=== PATIENT | female | born 1995 | race African-American/Black ===

== ENCOUNTER 2019-09-23 04:35 | Emergency (ER) | payer MEDICAID ==
[~2019-09-23] VITALS: Ht 170.2 cm; Wt 95.3 kg
[~2019-09-23 04:35] MED LIST: FERR-20 PO; PREN-145 OR
[2019-09-23 07:26] VITALS: BP 106/82
[2019-09-23] MEDS ORDERED: cefTRIAXone SOD 1,000 MG VL IM ONE (08:15)
[2019-09-23] MEDS ORDERED: IBUPROFEN 800 MG TAB PO ONE (08:15)
== END 2019-09-23 08:37 | disposition home or self-care (01) ==
LOC: ER 04:35
DX: J34.0 Abscess, furuncle and carbuncle of nose (principal); J45.909 Unspecified asthma, uncomplicated; R22.0 Localized swelling, mass and lump, head
CPT/HCPCS: 70450; 70486; 96372; 99284; J0696

== ENCOUNTER 2022-05-02 12:14 | Emergency (ER) | payer MEDICAID ==
[~2022-05-02] VITALS: Ht 170.2 cm; Wt 88.6 kg
[2022-05-02] MEDS ORDERED: D5W/SOD CHLO 0.9% 1,000 ML IV ONE (13:30)
[2022-05-02] MEDS ORDERED: ONDANSETRON HCL 4 MG/2 ML VIAL IV ONE (14:00)
[2022-05-02 14:22] LABS: Albumin 3.7 g/dL (3.4-5.0); Calcium 9.1 mg/dL (8.5-10.1); Potassium 3.9 mmol/L (3.5-5.1)
[2022-05-02 14:25] LABS: Bilirubin, Total 0.7 mg/dL (0.2-1.0); Total Protein 8.4 g/dL (6.4-8.2)
[2022-05-02 14:27] LABS: Eosinophils # (auto) 0 10 ^3/uL (0-0.8); Mean Corpuscular Hgb Conc. 31.4 g/dL (32.0-36.0); Monocytes # (auto) 0.4 10 ^3/uL (0-1.3)
[2022-05-02 14:28] LABS: Basophils # (auto) 0.1 10 ^3/uL (0-0.2); Basophils % (auto) 0.7 % (0.0-2.0); Eosinophils % (auto) 0.4 % (0.0-7.0); Lymphocytes # (auto) 2.3 10 ^3/uL (0.4-5.4); Lymphocytes % (auto) 26.3 % (10.0-50.0); Mean Corpuscular Hemoglobin 24.4 pg (28.0-32.0); Mean Corpuscular Volume 77.7 fL (80.0-100.0); Monocytes % (auto) 4.1 % (0.0-12.0); Neutrophils # (auto) 6.1 10 ^3/uL (1.6-8.6); Neutrophils % (auto) 68.5 % (37.0-80.0); Nucleated Red Blood Cells % 0.1 %; Red Blood Cells 4.51 10^6/uL (4.0-5.20); Red Cell Distribution Width 17.9 % (11.8-14.3); White Blood Cell 8.9 10^3/uL (4.4-10.8)
[2022-05-02] MEDS ORDERED: ONDA-144 PO (16:47)
[2022-05-02 18:33] VITALS: BP 115/66
== END 2022-05-02 18:42 | disposition home or self-care (01) ==
LOC: ER 12:14
DX: S00.93XA Contusion of unspecified part of head, initial encounter (principal); O21.8 Other vomiting complicating pregnancy; E86.0 Dehydration; J45.909 Unspecified asthma, uncomplicated; Z79.899 Other long term (current) drug therapy; Z3A.01 Less than 8 weeks gestation of pregnancy; W22.8XXA Striking against or struck by other objects, initial encounter; Y93.89 Activity, other specified; Y92.89 Other specified places as the place of occurrence of the external cause; Y99.8 Other external cause status
CPT/HCPCS: 36415; 36600; 80053; 82805; 82962; 84702; 85025; 86850; 86900; 86901; 93005; 96361; 96374; 99284; J2405; J7042

== ENCOUNTER 2022-05-19 09:18 | Emergency (ER) | payer MEDICAID ==
[~2022-05-19] VITALS: Ht 170.2 cm; Wt 193.6 kg
[~2022-05-19 09:18] MED LIST changes: +ONDA-144 PO
[2022-05-19 10:15] LABS: Eosinophils # (auto) 0 10 ^3/uL (0-0.8); Eosinophils % (auto) 0.3 % (0.0-7.0); Monocytes # (auto) 0.4 10 ^3/uL (0-1.3); White Blood Cell 8.5 10^3/uL (4.4-10.8)
[2022-05-19 10:16] LABS: Basophils # (auto) 0 10 ^3/uL (0-0.2); Basophils % (auto) 0.5 % (0.0-2.0); Hematocrit 38.3 % (36.0-46.0); Hemoglobin 11.9 g/dL (12.2-16.2); Lymphocytes # (auto) 1.6 10 ^3/uL (0.4-5.4); Lymphocytes % (auto) 18.5 % (10.0-50.0); Mean Corpuscular Volume 77.3 fL (80.0-100.0); Monocytes % (auto) 4.7 % (0.0-12.0); Neutrophils # (auto) 6.5 10 ^3/uL (1.6-8.6); Red Blood Cells 4.95 10^6/uL (4.0-5.20); Red Cell Distribution Width 18.4 % (11.8-14.3)
[2022-05-19 10:31] LABS: Albumin 3.3 g/dL (3.4-5.0); Calcium 9.5 mg/dL (8.5-10.1); Potassium 3.4 mmol/L (3.5-5.1)
[2022-05-19 10:35] LABS: BUN/Creatinine Ratio 15.4; Bilirubin, Total 1.5 mg/dL (0.2-1.0); Total Protein 7.6 g/dL (6.4-8.2)
[2022-05-19] MEDS: FAMOTIDINE (10MG/ML) 2ML VL IV ONE (12:44)
[2022-05-19] MEDS: ALUM & MAG HYDROX-SIMETH LIQ(MAALOX) 30 ML PO ONE (12:45)
[2022-05-19] MEDS: LIDOCAINE VISCOUS 2% 15ML UD PO ONE (12:45)
[2022-05-19] MEDS: METOCLOPRAMIDE HCL 5MG/ml INJ 2ml VIAL IV ONE (12:45)
[2022-05-19] MEDS: D5W/SOD CHLO 0.9% 1,000 ML IV ONE (12:45)
[2022-05-19] MEDS: PYRIDOXINE HCL 50 MG TAB PO ONE (12:50)
[2022-05-19] MEDS: diphenhdrAMINE HCL 50 MG/1 ML VL IV ONE (13:02)
[2022-05-19 14:16] LABS: Urine Bacteria NONE SEEN /hpf (None Seen); Urine Blood Negative /uL (Negative); Urine Mucus FEW (None Seen); Urine Specific Gravity 1.033 (1.001-1.035); Urine WBC 42 /hpf (0 - 5)
[2022-05-19] MEDS: ONDANSETRON HCL 4 MG/2 ML VIAL IV ONE (16:10)
[2022-05-19 16:40] VITALS: BP 109/66
[2022-05-19] MEDS ORDERED: CEFP200T15 PO (17:13)
== END 2022-05-19 17:42 | disposition home or self-care (01) ==
LOC: ER 09:18
DX: O21.8 Other vomiting complicating pregnancy (principal); Z3A.08 8 weeks gestation of pregnancy
CPT/HCPCS: 36415; 76801; 80053; 81001; 82010; 83605; 83690; 84702; 85025; 87040; 96365; 96375; 99284; J1200; J2765; J3490

== ENCOUNTER 2025-02-15 10:10 | Inpatient (IN) | payer MEDICAID ==
[~2025-02-15] VITALS: Ht 170.2 cm; Wt 103.2 kg
[~2025-02-15 10:10] MED LIST changes: +CEFP200T15 PO; -FERR-20 PO; +FERR325T24 PO
--- NOTE | 2025-02-15 10:26 | ED.PDOC ---
GI ASSESSMENT HPI Comments 29-year-old female with no reported PMHx or PSHx presents with a chief complaint of abdominal pain x 3 weeks with associated nausea, vomiting, and diarrhea. Patient states that her pain is localized to her periumbilical region, radiates to her RUQ, and describes it as cramping 7/10 pain. Patient mentions that the position is the position that alleviates the pain. Patient reports that she smokes marijuana daily. Chief Complaint: Abdominal Pain Time Seen by MD: 10:19 Primary Care Provider: LOREN Reviewed Notes: Nurses Notes, Medications, Allergies Allergies: Coded Allergies: NO KNOWN ALLERGIES (Unverified , 01/09/13) Home Meds Active Scripts Cefpodoxime Proxetil (Cefpodoxime Proxetil) 200 Mg Tab, 200 MG PO BID for 10 Days, #20 TAB Prov:ASTRID FONSECA MD 05/19/22 Ondansetron (Zofran) 4 Mg Tab, 1 TAB PO Q6HR, #20 TAB Prov:EVONNE SAUNDERS MD 05/02/22 Reported Medications Ferrous Sulfate (Ferrous Sulfate) 325 Mg Tab, 325 MG PO TIDWM for 30 Days 11/25/15 Vit W/ Ferrous Fumara (PNV FOLIC ACID + IRON MUL) + Iron Tab, 1 IRON OR DAILY, TAB 11/23/13 Information Source: Patient Mode of Arrival: Ambulatory Timing: Weeks Duration: Since onset Prehospital treatment: None Quality: Cramping Vomitus: Food Particles Stool: Watery, Brown Severity: Moderate Recent: None Recent Hx of: None Pain Location: RUQ, Periumbilical Associated sign and symptoms: Nausea, Vomiting, Diarrhea, Abdominal Pain Past Medical History PAST MEDICAL HISTORY: Asthma Surgical History: Denies all surgeries PHYSICIAN IN PRIVATE PRACTICE History: No Pertinent PHYSICIAN IN PRIVATE PRACTICE History Family History Family History: No family hx of HTN Social History Smoker: Non-Smoker Alcohol: Denies ETOH Use Drugs: Marijuana Lives In: Home Constitutional: denies: chills, diaphoresis, fatigue, fever, malaise, sweats, weakness, others EENTM: denies: blurred vision, double vision, ear bleeding, ear discharge, ear drainage, ear pain, ear ringing, eye pain, eye redness, hearing loss, mouth pain, mouth swelling, nasal discharge, nose bleeding, nose congestion, nose pain, photophobia, tearing, throat pain, throat swelling, voice changes, others Respiratory: denies: cough, hemoptysis, orthopnea, SOB at rest, shortness of breath, SOB with excertion, stridor, wheezing, others Cardiovascular: denies: chest pain, dizzy spells, diaphoresis, Dyspnea on exertion, edema, irregular heart beat, left arm pain, lightheadedness, palpitations, PND, syncope, others Gastrointestinal: reports: abdominal pain, diarrhea, nausea, vomiting; denies: abdomen distended, blood streaked bowels, constipated, dysphagia, difficulty swallowing, hematemesis, melena, poor appetite, poor fluid intake, rectal bleeding, rectal pain, others Genitourinary: denies: abnormal vagina bleeding, burning, dyspareunia, dysuria, flank pain, frequency, hematuria, incontinence, pain, , vagina discharge, urgency, others Neurological: denies: dizziness, fainting, headache, left sided numbness, left sided weakness, numbness, paresthesia, pre-existing deficit, right sided numbness, right sided weakness, seizure, speech problems, tingling, tremors, weakness, others Musculoskeletal: denies: back pain, gout, joint pain, joint swelling, muscle pain, muscle stiffness, neck pain, others Integumetry: denies: bruises, change in color, change in hair/nails, dryness, laceration, lesions, lumps, rash, wounds, others Allergic/Immunocompromised: denies: Difficulty Healing, Frequent Infections, Hives, Itching, others Hematologic/Lymphatic: denies: anemia, blood clots, easy bleeding, easy bruising, swollen glands, others Endocrine: denies: excessive hunger, excessive sweating, excessive thirst, excessive urination, flushing, intolerance to cold, intolerance to heat, unexplained weight gain, unexplained weight loss, others Psychiatric: denies: anxiety, bipolar disorder, depression, hopeless, panic disorder, schizophrenia, sleepless, suicidal, others All Other Systems: Reviewed and Negative Physical Exam General Appearance: Moderate Distress HEENT: Normal ENT Inspection, Pharynx Normal, TMs Normal Neck: Full Range of Motion, Non-Tender, Normal, Normal Inspection Respiratory: Chest Non-Tender, Lungs Clear, No Accessory Muscle Use, No Respiratory Distress, Normal Breath Sounds Cardiovascular: No Edema, No JVD, No Murmur, No Gallop, Normal Peripheral Pulses, Regular Rate/Rhythm Breast Exam: Deferred Gastrointestinal: Epigastric, No Organomegaly, No Pulsatile Mass, Normal Bowel Sounds, Soft, Tenderness Genitalia: Deferred Pelvic: Deferred Rectal: Deferred Extremities: No calf tenderness, Normal capillary refill, Normal inspection, Normal range of motion, Non-tender, No pedal edema Musculoskeletal : Apperance: Normal Neurologic: Alert, seasoning sprayer II-XII nml as Tested, No Motor Deficits, Normal Affect, Normal Mood, No Sensory Deficits Cerebellar Function: Normal Reflexes: Normal Skin: Dry, Normal Color, Warm Lymphatic: No Adenopathy Was a procedure done? Was a procedure done?: No GI differential Dx Differential Diagnosis: Cholangitis, Cholecystitis, Gastritis/PUD, Gastroenteritis, Inflammatory BD, Ischemic Bowel, UTI, Electrolyte Imbalance, Food Poisoning X-Ray, Labs, Meds, VS Vital Signs Date Time Temp Pulse Resp B/P (MAP) Pulse Ox O2 Delivery O2 Flow Rate FiO2 02/15/25 10:19 99.1 79 17 133/82 (99) 99 99.1 Lab Test 02/15/25 10:33 02/15/25 10:30 Range/Units White Blood Count 7.0 4.4-10.8 10^3/uL Red Blood Count 4.82 4.0-5.20 10^6/uL Hemoglobin 11.2 L 12.2-16.2 g/dL Hematocrit 35.4 L 36.0-46.0 % Mean Corpuscular Volume 73.5 L 80.0-100.0 fL Mean Corpuscular Hemoglobin 23.1 L 28.0-32.0 pg Mean Corpuscular Hemoglobin Concent 31.5 L 32.0-36.0 g/dL Red Cell Distribution Width 18.4 H 11.8-14.3 % Platelet Count 384 140-450 10^3/uL Mean Platelet Volume 8.0 6.9-10.8 fL Neutrophils (%) (Auto) 56.1 37.0-80.0 % Lymphocytes (%) (Auto) 36.8 10.0-50.0 % Monocytes (%) (Auto) 5.1 0.0-12.0 % Eosinophils (%) (Auto) 1.4 0.0-7.0 % Basophils (%) (Auto) 0.6 0.0-2.0 % Neutrophils # (Auto) 3.9 1.6-8.6 10 ^3/uL Lymphocytes # (Auto) 2.6 0.4-5.4 10 ^3/uL Monocytes # (Auto) 0.4 0-1.3 10 ^3/uL Eosinophils # (Auto) 0.1 0-0.8 10 ^3/uL Basophils # (Auto) 0 0-0.2 10 ^3/uL Nucleated Red Blood Cells 0.0 % Sodium Level 137 136-145 mmol/L Potassium Level 3.5 3.5-5.1 mmol/L Chloride Level 105 98-107 mmol/L Carbon Dioxide Level 26 20-31 mmol/L Anion Gap 6 5-15 Blood Urea Nitrogen 10 9-23 mg/dL Creatinine 0.90 0.550-1.02 mg/dL Glomerular Filtration Rate Calc 88 >90 mL/min BUN/Creatinine Ratio 11.1 10.0-20.0 Serum Glucose 82 74-106 mg/dL Calcium Level 9.5 8.7-10.4 mg/dL Total Bilirubin 0.7 0.2-1.0 mg/dL Aspartate Amino Transferase (AST) 12 L 13-40 U/L Alanine Aminotransferase (ALT) 14 7-40 U/L Alkaline Phosphatase 93 46-116 U/L Total Protein 8.1 5.7-8.2 g/dL Albumin 4.8 3.2-4.8 g/dL Lipase 32 12-53 U/L Urine Color Light-yellow Yellow Urine Clarity Turbid H Clear Urine pH 6.5 5.0-9.0 Urine Specific [place] 1.021 1.001-1.035 Urine Protein Negative Negative Urine Ketones Negative Negative Urine Blood Negative Negative /uL Urine Nitrite Negative Negative Urine Bilirubin Negative Negative Urine Urobilinogen Normal Negative mg/dL Urine Leukocyte Esterase 3+ Negative /uL Urine RBC 5 0 - 4 /hpf Urine Microscopic WBC 4 0-5 /HPF Urine Squamous Epithelial Cells Few <5 /hpf Urine Bacteria None seen None Seen /hpf Urine Mucus Few None Seen Urine Glucose Normal Normal mg/dL Urine Test Negative Negative IV Hep-Lock was established The patient is being given Protonix 40 mg IV push The patient was given Zofran 4 mg IV push The gallbladder ultrasound shows cholelithiasis but no sign of any dilated ducts. The patient's CBC is within normal limits. The chemistry panel is within normal limits. The lipase is within normal limits The urine test is positive for UTI The patient is being given Rocephin 1 g IV piggyback Images Reviewed?: Images reviewed and evaluated by me Time of 1ST Reevaluation: 10:49 Reevaluation 1ST: Unchanged Patient Education/Counseling: Diagnosis, Treatment, Prognosis Family Education/Counseling: No Family Present Departure 1 Departure Time of Disposition: 11:36 Impression: Primary Impression: Intractable abdominal pain Additional Impression: Cholelithiasis Qualified Codes: K80.20 - Calculus of gallbladder without cholecystitis without obstruction Disposition: ADMITTED INPATIENT Admit to: Med Surg Condition: Fair Critical Care Note Critical Care Time?: No Stability Stability form required: Yes Unstable for transfer: ED Physician Assesment (Clinical assesment) Heart Score Heart Score: Heart Score Response (Comments) Value History N/A 0 EKG N/A 0 Age N/A 0 Risk Factors N/A 0 Troponin N/A 0 Total 0 I personally scribed for OLIVER VASQUEZ MD ([email or web address]) on 02/15/25 at 10:26. Electronically submitted by Dennis Seymour ([email or web address]). OLIVER VASQUEZ MD February 15, 2025 10:26
[2025-02-15 10:41] LABS: Urine Bacteria None Seen /hpf (None Seen)
[2025-02-15 10:47] LABS: Eosinophils # (auto) 0.1 10 ^3/uL (0-0.8); Mean Corpuscular Hemoglobin 23.1 pg (28.0-32.0); Neutrophils # (auto) 3.9 10 ^3/uL (1.6-8.6)
[2025-02-15 10:50] LABS: Basophils # (auto) 0 10 ^3/uL (0-0.2); Basophils % (auto) 0.6 % (0.0-2.0); Eosinophils % (auto) 1.4 % (0.0-7.0); Hematocrit 35.4 % (36.0-46.0); Hemoglobin 11.2 g/dL (12.2-16.2); Lymphocytes # (auto) 2.6 10 ^3/uL (0.4-5.4); Lymphocytes % (auto) 36.8 % (10.0-50.0); Mean Corpuscular Hgb Conc. 31.5 g/dL (32.0-36.0); Mean Corpuscular Volume 73.5 fL (80.0-100.0); Monocytes # (auto) 0.4 10 ^3/uL (0-1.3); Monocytes % (auto) 5.1 % (0.0-12.0); Neutrophils % (auto) 56.1 % (37.0-80.0); Platelet Count (auto) 384 10^3/uL (140-450); Red Blood Cells 4.82 10^6/uL (4.0-5.20); Red Cell Distribution Width 18.4 % (11.8-14.3)
[2025-02-15 10:57] LABS: Urine Blood Negative /uL (Negative); Urine Clarity Turbid (Clear); Urine Color Light-Yellow (Yellow); Urine Mucus FEW (None Seen); Urine Protein, UAD Negative (Negative); Urine Specific Gravity 1.021 (1.001-1.035); Urine Squamous Epithelial Cell FEW /hpf (<5); Urine Urobilinogen Normal (Negative); Urine WBC 4 /HPF (0-5); Urine pH 6.5 (5.0-9.0)
[2025-02-15 11:06] LABS: Alanine Aminotransferase 14 U/L (7-40); Alkaline Phosphatase 93 U/L (46-116); Anion Gap 6 (5-15); BUN/Creatinine Ratio 11.1 (10.0-20.0); Bilirubin, Total 0.7 mg/dL (0.2-1.0); Blood Urea Nitrogen 10 mg/dL (9-23); Calcium 9.5 mg/dL (8.7-10.4); Carbon Dioxide 26 mmol/L (20-31); Chloride 105 mmol/L (98-107); Glucose 82 mg/dL (74-106); Lipase 32 U/L (12-53); Potassium 3.5 mmol/L (3.5-5.1); Sodium 137 mmol/L (136-145); Total Protein 8.1 g/dL (5.7-8.2)
[2025-02-15 11:07] LABS: Albumin 4.8 g/dL (3.2-4.8); Aspartate Aminotransferase 12 U/L (13-40)
--- NOTE | 2025-02-15 11:30 | DVH ---
INDICATION: pain TECHNIQUE: Multiple real-time sonographic images were obtained of the right upper quadrant. COMPARISON: None FINDINGS: The liver demonstrates homogenous echotexture without focal mass lesions. The liver measure s 16 cm. There is no intrahepatic or extrahepatic ductal dilatation. The common duct measures 5 mm. Gallstones. The gallbladder wall measures 2 mm and is within normal limits. The right kidney measures 10.0 cm. The right kidney is normal in contour, size, and shape. The echog enicity is normal. There is no hydronephrosis. The pancreas is not well visualized due to overlying bowel gas. IMPRESSION: Cholelithiasis without sonographic evidence of acute cholecystitis.
[2025-02-15] MEDS: ONDANSETRON HCL 4 MG/2 ML VIAL IV ONE (13:11)
[2025-02-15] MEDS: PANTOPRAZOLE 40 MG/10 ML VIAL INJ IV ONE (13:11)
--- NOTE | 2025-02-15 13:19 | DVHHP2 ---
History of Present Illness Reason for Visit: Abdominal pain History of Present Illness 29-year-old female past medical history asthma no surgical history chief complaint patient complains of right upper quadrant pain she has been dealing with it for two months last week the symptoms got worse with the pain was more intense full especially when she ate so she has been having decreased appetite due to the pain she denies any chest pain no shortness with the breath patient does have subjective fevers patient denies any vomiting or diarrhea not eating makes the pain better along with lying in the position. When evaluating patient's labs and imaging CBC was unremarkable CMP unremarkable UA shows few leuks but no urinary symptoms ultrasound of the abdomen shows gallstones with no infection with these findings we will admit patient ask for General surgery evaluation IV fluid hydration since no white count no fever we will hold off on antibiotics for now Past Medical History See HPI above Past Surgical History See HPI above Family History Reviewed, non-contributory to the management of this case. Past Social History The patient lives at home, denies smoking, alcohol or illicit drugs abuse. Review of Systems Constitutional: No: Fever, Chills, Sweats, Weakness, Malaise, Other Eyes: No: Pain, Vision change, Conjunctivae inflammation, Eyelid inflammation, Other, Redness ENT: No: Ear pain, Ear discharge, Nose pain, Nose discharge, Nose congestion, Mouth pain, Mouth swelling, Throat pain, Throat swelling, Other Respiratory: No: Cough, Dry, Shortness of breath, SOB with excertion, Wheezing, Hemoptysis, Pleuritic Pain, Sputum, Wheezing, Other Cardiovascular: No: Chest Pain, Palpitations, Orthopnea, Paroxysmal Noc. Dyspnea, Edema, Lt Headedness, Other Gastrointestinal: Nausea, Vomiting, Abdominal Pain; No: Diarrhea, Constipation, Melena, Hematochezia, Other Genitourinary: No Dysuria, No Frequency, No Incontinence, No Hematuria, No Retention, No Other Musculoskeletal: No: other, neck pain, shoulder pain, arm pain, back pain, hand pain, leg pain, foot pain Skin: No: Rash, Lesions, Jaundice, Bruising, Other Neurological: No: Weakness, Numbness, Incoordination, Change in speech, Confusion, Seizures, Other Allergies: Coded Allergies: NO KNOWN ALLERGIES (Unverified , 01/09/13) Exam Vital Signs Vital Signs Date Time Temp Pulse Resp B/P (MAP) Pulse Ox O2 Delivery O2 Flow Rate FiO2 02/15/25 11:48 98.7 94 18 132/81 (98) 99 98.7 02/15/25 11:48 Room Air General Appearance: Alert, Oriented X3, Cooperative, No acute distress HEENT: Atraumatic, PERRLA, EOMI, Mucous membr. moist/pink Respiratory: Clear to auscultation, Normal air movement Cardiovascular: Regular rate, Normal S1, Normal S2, No murmurs Abdominal: Normal bowel sounds, Soft, No hepatospenomegaly, No masses, Other (Guarding and rebound tenderness to right upper quadrant of the abdomen) Extremities: No clubbing, No cyanosis, No edema, Normal pulses, No tenderness/swelling Skin: No rashes, No breakdown, No significant lesion Neuro: Normal gait, Normal speech, Strength at 5/5 X4 ext, Normal tone, Sensation intact, Cranial nerves 3-12 NL Psych/Mental Status: Mental status NL, Mood NL Labs/Xrays Ultrasound of the abdomen shows gallstones but no infection I reviewed labs, imaging CT scan abdomen pelvis, EKG and all diagnostic studies on this patient from ED records and the medical chart Labs Test 02/15/25 10:33 02/15/25 10:30 Range/Units White Blood Count 7.0 4.4-10.8 10^3/uL Red Blood Count 4.82 4.0-5.20 10^6/uL Hemoglobin 11.2 L 12.2-16.2 g/dL Hematocrit 35.4 L 36.0-46.0 % Mean Corpuscular Volume 73.5 L 80.0-100.0 fL Mean Corpuscular Hemoglobin 23.1 L 28.0-32.0 pg Mean Corpuscular Hemoglobin Concent 31.5 L 32.0-36.0 g/dL Red Cell Distribution Width 18.4 H 11.8-14.3 % Platelet Count 384 140-450 10^3/uL Mean Platelet Volume 8.0 6.9-10.8 fL Neutrophils (%) (Auto) 56.1 37.0-80.0 % Lymphocytes (%) (Auto) 36.8 10.0-50.0 % Monocytes (%) (Auto) 5.1 0.0-12.0 % Eosinophils (%) (Auto) 1.4 0.0-7.0 % Basophils (%) (Auto) 0.6 0.0-2.0 % Neutrophils # (Auto) 3.9 1.6-8.6 10 ^3/uL Lymphocytes # (Auto) 2.6 0.4-5.4 10 ^3/uL Monocytes # (Auto) 0.4 0-1.3 10 ^3/uL Eosinophils # (Auto) 0.1 0-0.8 10 ^3/uL Basophils # (Auto) 0 0-0.2 10 ^3/uL Nucleated Red Blood Cells 0.0 % Sodium Level 137 136-145 mmol/L Potassium Level 3.5 3.5-5.1 mmol/L Chloride Level 105 98-107 mmol/L Carbon Dioxide Level 26 20-31 mmol/L Anion Gap 6 5-15 Blood Urea Nitrogen 10 9-23 mg/dL Creatinine 0.90 0.550-1.02 mg/dL Glomerular Filtration Rate Calc 88 >90 mL/min BUN/Creatinine Ratio 11.1 10.0-20.0 Serum Glucose 82 74-106 mg/dL Calcium Level 9.5 8.7-10.4 mg/dL Total Bilirubin 0.7 0.2-1.0 mg/dL Aspartate Amino Transferase (AST) 12 L 13-40 U/L Alanine Aminotransferase (ALT) 14 7-40 U/L Alkaline Phosphatase 93 46-116 U/L Total Protein 8.1 5.7-8.2 g/dL Albumin 4.8 3.2-4.8 g/dL Lipase 32 12-53 U/L Urine Color Light-yellow Yellow Urine Clarity Turbid H Clear Urine pH 6.5 5.0-9.0 Urine Specific [place] 1.021 1.001-1.035 Urine Protein Negative Negative Urine Ketones Negative Negative Urine Blood Negative Negative /uL Urine Nitrite Negative Negative Urine Bilirubin Negative Negative Urine Urobilinogen Normal Negative mg/dL Urine Leukocyte Esterase 3+ Negative /uL Urine RBC 5 0 - 4 /hpf Urine Microscopic WBC 4 0-5 /HPF Urine Squamous Epithelial Cells Few <5 /hpf Urine Bacteria None seen None Seen /hpf Urine Mucus Few None Seen Urine Glucose Normal Normal mg/dL Urine Test Negative Negative Assessment/Plan Assessment/Plan acute intractable abd pain us shows gallstones but in infection clr liquid diet for now ivf protonix ordered morphine as needed for pain acute gallstones no infection found on us ordered morphine for now ordered general surgery consult fu results monitor for fever since no increase wbc and fever no antibiotics at this time chronic problems asthma fen/ppx clr liquid protonix scd ivf plan admit to medicine Plan discussed with: Patient Date of Service: February 15, 2025 Billing Provider: MARLENE PETERS DNP Common Visit Codes: [id number] INP/OBS CARE (HIGH) MARLENE PETERS DNP February 15, 2025 13:19
[2025-02-15] MEDS: ACETAMINOPHEN 325 MG TAB PO ONE (14:42)
[2025-02-15] MEDS ORDERED: NITROGLYCERIN 0.4 MG SL TAB SL PRN (15:45)
[2025-02-15] MEDS ORDERED: MORPHINE SULFATE INJ 2 MG/ml SYRG IV PRN (15:45)
[2025-02-15] MEDS ORDERED: SERT50TA PO (16:54)
[2025-02-15] MEDS: SODIUM CHLORIDE 0.9% 1,000 ML IV SCH (18:59)
[2025-02-15 19:53] LABS: INR 1.08 (0.9-1.15); Partial Thromboplastin Time 31.1 SEC (24.5-34.5); Prothrombin Time 11.4 sec (9.3-11.8)
[2025-02-15 21:00] VITALS: BP 134/80; PULSE 73; RESP 98; TEMP 97.1; O2SAT 98
[2025-02-15] MEDS: ONDANSETRON HCL 4 MG/2 ML VIAL IV PRN (21:04)
[2025-02-15] MEDS: MORPHINE SULFATE 4 MG/ML SYR/VIAL IV PRN (21:17)
[2025-02-16] VITALS (9 sets, daily range): BP systolic 112–129; BP diastolic 61–72; PULSE 74–102; RESP 14–18; TEMP 97.5–98.2; O2SAT 98–100
[2025-02-16 08:04] LABS: Basophils # (auto) 0 10 ^3/uL (0-0.2); Eosinophils # (auto) 0.1 10 ^3/uL (0-0.8); Hemoglobin 9.9 g/dL (12.2-16.2); Mean Corpuscular Hemoglobin 23.2 pg (28.0-32.0); Monocytes # (auto) 0.4 10 ^3/uL (0-1.3); Neutrophils # (auto) 3.4 10 ^3/uL (1.6-8.6); Nucleated Red Blood Cells % 0.1 %; White Blood Cell 5.9 10^3/uL (4.4-10.8)
[2025-02-16 08:05] LABS: Basophils % (auto) 0.5 % (0.0-2.0); Eosinophils % (auto) 1.8 % (0.0-7.0); Hematocrit 31.6 % (36.0-46.0); Lymphocytes # (auto) 1.9 10 ^3/uL (0.4-5.4); Mean Corpuscular Hgb Conc. 31.4 g/dL (32.0-36.0); Mean Corpuscular Volume 73.9 fL (80.0-100.0); Monocytes % (auto) 7.5 % (0.0-12.0); Neutrophils % (auto) 58.2 % (37.0-80.0); Platelet Count (auto) 284 10^3/uL (140-450); Red Blood Cells 4.28 10^6/uL (4.0-5.20); Red Cell Distribution Width 18.2 % (11.8-14.3)
[2025-02-16 08:07] LABS: Alanine Aminotransferase 11 U/L (7-40); Albumin 4.1 g/dL (3.2-4.8); Alkaline Phosphatase 84 U/L (46-116); Anion Gap 6 (5-15); BUN/Creatinine Ratio 11.3 (10.0-20.0); Calcium 9.1 mg/dL (8.7-10.4); Carbon Dioxide 24 mmol/L (20-31); Glucose 82 mg/dL (74-106); Potassium 3.6 mmol/L (3.5-5.1); Sodium 141 mmol/L (136-145); Total Protein 6.8 g/dL (5.7-8.2)
[2025-02-16 08:08] LABS: Bilirubin, Total 0.8 mg/dL (0.2-1.0)
[2025-02-16 08:13] LABS: Aspartate Aminotransferase 12 U/L (13-40); Blood Urea Nitrogen 9 mg/dL (9-23); Chloride 111 mmol/L (98-107)
--- NOTE | 2025-02-16 09:26 | DVH ---
EXAM: XY CHEST PORTABLE HISTORY: pre-op, asthma, daily smoker COMPARISON: None TECHNIQUE: Portable upright AP view of the chest was performed. FINDINGS: No pneumothorax, consolidative infiltrates, or pulmonary edema. The heart is not enlarged. IMPRESSION: No acute intrathoracic process.
[2025-02-16] MEDS: ceFAZolin 2 GM/D5W50ml 50 ML IV ONE (10:02)
[2025-02-16] MEDS ORDERED: fentaNYL CITRATE 100 MCG/2 ML VL ONE ×2 (10:10→11:28)
[2025-02-16] MEDS ORDERED: MIDAZOLAM HCL 2MG/2ML 2ml VIAL (1mg/ml) ONE (10:10)
[2025-02-16] MEDS ORDERED: KETAMINE 50mg/ML 1ml syringe ONE (10:10)
[2025-02-16] MEDS ORDERED: HYDROmorphone HCL 2 MG/ML VL/or syr ONE (10:10)
[2025-02-16] MEDS ORDERED: LIDOCAINE 2% (LOCAL ANESTH.) PF 5ml SDV ONE (10:11)
[2025-02-16] MEDS ORDERED: ROCURONIUM 10MG/ML 10ML VIAL IV ONE (10:11)
[2025-02-16] MEDS ORDERED: GLYCOPYRROLATE 0.2 MG/ML 1ML VIAL ONE (10:11)
[2025-02-16] MEDS ORDERED: SUGAMMADEX 200mg/2ml Vial (100MG/ML) IV ONE (10:11)
[2025-02-16] MEDS ORDERED: DexAMETHasone SOD PHOS 10MG/1ML VIAL INJ ONE (10:11)
[2025-02-16] MEDS ORDERED: PROPOFOL 10 MG/ML 20 ML IV ONE (10:11)
[2025-02-16] MEDS ORDERED: KETOROLAC TROMETH 30 MG/ML 1ML VIAL ONE (10:11)
[2025-02-16] MEDS ORDERED: ONDANSETRON HCL 4 MG/2 ML VIAL ONE (10:11)
[2025-02-16] MEDS ORDERED: ePHEDrine SULFATE 50 MG/ML AMP ONE (10:11)
[2025-02-16] MEDS: LIDOCAINE W/ EPINEPHRINE 1% 20ML VIAL ONE (12:01)
[2025-02-16] MEDS: BUPIVACAINE 0.5% P/F INJ 10 ML VIAL ONE (12:01)
[2025-02-16] MEDS: ONDANSETRON HCL 4 MG/2 ML VIAL IV ONE (12:30)
[2025-02-16] MEDS ORDERED: HYDROmorphone HCL 2 MG/ML VL/or syr IV PRN (12:30)
--- NOTE | 2025-02-16 12:51 | DVHOP ---
DATE OF SURGERY: 02/16/2025 PREOPERATIVE DIAGNOSES: * Cholelithiasis. * Cholecystitis. POSTOPERATIVE DIAGNOSES: * Cholelithiasis. * Cholecystitis. SURGEON: Roman Stewart MD MECHANIST: Theodore Catalan NP ANESTHESIA: General endotracheal, Dr. Arellano. PROCEDURES: * Laparoscopy. * Laparoscopic cholecystectomy. DESCRIPTION OF PROCEDURE: Under general endotracheal anesthesia with the patient's skin prepped and draped, a supraumbilical incision was made and a Veress needle inserted by the hanging drop technique to establish pneumoperitoneum to 15 mmHg pressure by insufflation with carbon dioxide with the abdomen fully distended. The needle was removed and replaced with a 5 mm trocar port through which a 0-degree viewing laparoscope was inserted and under direct vision, additional 5 and 10 mm ports were inserted through the anterior axillary line at the level of the umbilicus and through the subxiphoid midline skin respectively. Instrumentation was introduced and laparoscopy was performed revealing no obvious unexpected pathology. The gallbladder was exceedingly elongated. It was placed on tension. The cystic duct and cystic artery were identified, circumferentially dissected and skeletonized, traced into the hepatic or cystic triangle so as to minimize the potential for an inadvertent injury to the common bile duct. The cystic duct and cystic artery were then divided between metallic clips and subsequent to this maneuver, the gallbladder was resected from its liver bed by electrocautery and traction. Part of the gallbladder was intrahepatic resulting in some denuding of the liver bed and a moderate amount of bleeding. The bleeding was controlled with additional hemoclips and electrocautery. The fully mobilized gallbladder was extracted from the subxiphoid incision which had to be enlarged as the gallbladder contained violent stones which would not compress the gallbladder removed from the peritoneal cavity, allowed the right upper quadrant to be thoroughly irrigated. Irrigant was aspirated. Hemostasis was meticulously assured and found to be complete at the termination of the procedure. There was no bleeding from either the liver bed or from the port sites. Instrumentation was withdrawn. Pneumoperitoneum was evacuated. Fascia defect closed using 0 Vicryl. Wounds were approximated using Monocryl sutures, Dermabond glue, and Steri-Strips. The patient remained stable throughout the procedure, left the operating room following an accurate needle and sponge counts and attempted reaching the patient's mother at [phone] was unsuccessful on numerous repeat occasions. Roman Stewart MD PF/MARCIANO TID: [id number] RECEIPT: [id number]
[2025-02-16] MEDS: IPRATROPIUM BROM 0.5 MG/2.5ML INH SOL NEB ONE (12:56)
[2025-02-16] MEDS: ALBUTEROL SULF 2.5 MG/0.5ML(0.5%) NEB SOLN NEB ONE (12:56)
[2025-02-16 15:03] LABS: Basophils # (auto) 0 10 ^3/uL (0-0.2); Basophils % (auto) 0.2 % (0.0-2.0); Eosinophils # (auto) 0 10 ^3/uL (0-0.8); Hemoglobin 10.1 g/dL (12.2-16.2); Lymphocytes # (auto) 0.7 10 ^3/uL (0.4-5.4); Monocytes # (auto) 0 10 ^3/uL (0-1.3); Neutrophils # (auto) 10.8 10 ^3/uL (1.6-8.6); Nucleated Red Blood Cells % 0.1 %
[2025-02-16 15:04] LABS: Hematocrit 32.8 % (36.0-46.0); Lymphocytes % (auto) 5.8 % (10.0-50.0); Mean Corpuscular Hemoglobin 22.9 pg (28.0-32.0); Mean Corpuscular Hgb Conc. 30.9 g/dL (32.0-36.0); Mean Corpuscular Volume 74.2 fL (80.0-100.0); Monocytes % (auto) 0.4 % (0.0-12.0); Neutrophils % (auto) 93.6 % (37.0-80.0); Platelet Count (auto) 297 10^3/uL (140-450); Red Blood Cells 4.42 10^6/uL (4.0-5.20); Red Cell Distribution Width 18.3 % (11.8-14.3); White Blood Cell 11.5 10^3/uL (4.4-10.8)
[2025-02-16 17:36] LABS: Base Excess -7.5 mmol/L (-2.0-3.0)
[2025-02-16] MEDS: FAMOTIDINE (10MG/ML) 2ML VL IV ONE ×2 (18:08→19:14)
[2025-02-16 18:16] LABS: Hematocrit 33.8 % (36.0-46.0); Hemoglobin 10.5 g/dL (12.2-16.2); Mean Corpuscular Hemoglobin 22.9 pg (28.0-32.0); Mean Corpuscular Hgb Conc. 30.9 g/dL (32.0-36.0); Platelet Count (auto) 339 10^3/uL (140-450); Red Blood Cells 4.57 10^6/uL (4.0-5.20); Red Cell Distribution Width 18.2 % (11.8-14.3); White Blood Cell 12.9 10^3/uL (4.4-10.8)
[2025-02-16 18:20] LABS: Band Neutrophils % (manual) 0; Basophils % (manual) 0 (0.0-2.0); Blast Cells 0; Eosinophils % (manual) 0 (0-7); Metamyelocytes % 0; Myelocytes % 0; Promyelocytes % 0; Reactive Lymphocytes 0
[2025-02-16 18:28] LABS: Alanine Aminotransferase 26 U/L (7-40); Albumin 4.3 g/dL (3.2-4.8); Alkaline Phosphatase 99 U/L (46-116); Anion Gap 11 (5-15); Aspartate Aminotransferase 31 U/L (13-40); BUN/Creatinine Ratio 9.4 (10.0-20.0); Bilirubin, Total 0.5 mg/dL (0.2-1.0); Calcium 9.2 mg/dL (8.7-10.4); Carbon Dioxide 21 mmol/L (20-31); Potassium 3.9 mmol/L (3.5-5.1); Sodium 140 mmol/L (136-145); Total Protein 7.1 g/dL (5.7-8.2)
[2025-02-16 18:33] LABS: Blood Urea Nitrogen 8 mg/dL (9-23); Chloride 108 mmol/L (98-107); Glucose 142 mg/dL (74-106)
--- NOTE | 2025-02-16 18:57 | DVHPN2 ---
Progress Note - Dictate Date Seen: February 16, 2025 Medical Necessity Reason Pt with a Central, PICC or Fol: No Subjective Asked to evaluate the patient postoperatively by Dr. Stewart due to the patient's altered mental status. 29-year-old female status post uncomplicated laparoscopic cholecystectomy earlier today with altered mental status. vital signs Vital Sign Date Time Temp Pulse Resp B/P (MAP) Pulse Ox O2 Delivery O2 Flow Rate FiO2 02/16/25 17:00 98.0 83 18 116/72 (87) 100 98.0 02/16/25 13:43 Nasal Cannula 2.0 100 Total Intake and Output 02/15/25 02/15/25 02/16/25 15:00 23:00 07:00 Intake Total 1360 ml Output Total 2 ml Balance 1358 ml medications Current Medications Medications Dose Ordered Sig/Rizwan Route Start Time Stop Time Status Last Admin Dose Admin Sodium Chloride 1,000 ml @ 120 mls/hr Q8H20M IV 02/15/25 15:45 02/16/25 08:25 120 MLS/HR Ondansetron HCl 4 mg Q4HP PRN IV 02/15/25 15:45 02/15/25 21:04 4 MG Docusate Sodium 100 mg BIDPRN PRN PO 02/15/25 15:45 Morphine Sulfate 2 mg Q4HPRN PRN IV 02/15/25 15:45 UNV Nitroglycerin 0.4 mg Q5MINP PRN SL 02/15/25 15:45 Morphine Sulfate 2 mg Q4HPRN PRN IV 02/15/25 16:30 02/15/25 21:17 2 MG Acetaminophen 650 mg Q6HP PRN PO 02/16/25 03:00 Metronidazole 100 ml @ 100 mls/hr Q8HR IV 02/16/25 22:00 Cefazolin Sodium 50 ml @ 100 mls/hr Q8HR IV 02/16/25 22:00 objective GEN: Awake but not verbally responsive. Occasionally opens eyes and looks around and then goes back to closing her eyes. ABD: Surgical dressings clean and dry. No signs of bleeding or ecchymosis. laboratory and microbiology Laboratory Tests 02/16/25 17:38 Test 02/16/25 17:38 Range/Units Serum Glucose 142 H 74-106 mg/dL Assessment/Plan A: 1. Status post laparoscopic cholecystectomy with postoperative altered mental status. P: 1. CT head 2. urine tox Plan discussed with: Other URBAN MATHEW MD February 16, 2025 18:57
--- NOTE | 2025-02-16 18:58 | DVHPN2 ---
Subjective Was in the OR Changes from previous H/P or p: No Changes Eyes: No Pain, No Vision change, No Conjunctivae inflammation, No Eyelid inflammation, No Other, No Redness ENT: No Ear pain, No Ear discharge, No Nose pain, No Nose discharge, No Nose congestion, No Mouth pain, No Mouth swelling, No Throat pain, No Throat swelling, No Other Cardiovascular: No Chest Pain, No Palpitations, No Orthopnea, No Paroxysmal Noc. Dyspnea, No Edema, No Lt Headedness, No Other Respiratory: No Cough, No Dry, No Shortness of breath, No SOB with excertion, No Wheezing, No Hemoptysis, No Pleuritic Pain, No Sputum, No Other Gastrointestinal: Nausea, Vomiting, Abdominal Pain; No Diarrhea, No Constipation, No Melena, No Hematochezia, No Other Genitourinary: No Dysuria, No Frequency, No Incontinence, No Hematuria, No Retention, No Other Musculoskeletal: No other, No neck pain, No shoulder pain, No arm pain, No back pain, No hand pain, No leg pain, No foot pain Skin: No Rash, No Lesions, No Jaundice, No Bruising, No Other Objective Vitals Vital Signs Date Time Temp Pulse Resp B/P (MAP) Pulse Ox O2 Delivery O2 Flow Rate FiO2 02/16/25 17:00 98.0 83 18 116/72 (87) 100 98.0 02/16/25 13:43 Nasal Cannula 2.0 100 Intake/Output Intake and Output 02/16/25 07:00 Intake Total 1360 ml Output Total 2 ml Balance 1358 ml Intake Oral 0 ml IV Total 1360 ml Output Stool Total 2 ml # Voids 1 Medications Current Medications Medications Dose Ordered Sig/Rizwan Route Start Time Stop Time Status Last Admin Dose Admin Sodium Chloride 1,000 ml @ 120 mls/hr Q8H20M IV 02/15/25 15:45 02/16/25 08:25 120 MLS/HR Ondansetron HCl 4 mg Q4HP PRN IV 02/15/25 15:45 02/15/25 21:04 4 MG Docusate Sodium 100 mg BIDPRN PRN PO 02/15/25 15:45 Morphine Sulfate 2 mg Q4HPRN PRN IV 02/15/25 15:45 UNV Nitroglycerin 0.4 mg Q5MINP PRN SL 02/15/25 15:45 Morphine Sulfate 2 mg Q4HPRN PRN IV 02/15/25 16:30 02/15/25 21:17 2 MG Acetaminophen 650 mg Q6HP PRN PO 02/16/25 03:00 Metronidazole 100 ml @ 100 mls/hr Q8HR IV 02/16/25 22:00 Cefazolin Sodium 50 ml @ 100 mls/hr Q8HR IV 02/16/25 22:00 Laboratory Results Laboratory Tests 02/16/25 17:38 Chemistry Test 02/16/25 07:04 02/16/25 17:38 Albumin 4.1 g/dL (3.2-4.8) 4.3 g/dL (3.2-4.8) Calcium Level 9.1 mg/dL (8.7-10.4) 9.2 mg/dL (8.7-10.4) Total Protein 6.8 g/dL (5.7-8.2) 7.1 g/dL (5.7-8.2) Coagulation Test 02/15/25 19:29 Prothrombin Time 11.4 sec (9.3-11.8) Prothrombin Time INR 1.08 (0.9-1.15) Activated Partial Thromboplast Time 31.1 SEC (24.5-34.5) LFT Test 02/16/25 07:04 02/16/25 17:38 Alanine Aminotransferase (ALT) 11 U/L (7-40) 26 U/L (7-40) Alkaline Phosphatase 84 U/L (46-116) 99 U/L (46-116) Aspartate Amino Transferase (AST) 12 U/L (13-40) L 31 U/L (13-40) Total Bilirubin 0.8 mg/dL (0.2-1.0) 0.5 mg/dL (0.2-1.0) Urinalysis Test 02/15/25 10:30 Urine Color Light-yellow (Yellow) Urine Clarity Turbid (Clear) H Urine pH 6.5 (5.0-9.0) Urine Specific [place] 1.021 (1.001-1.035) Urine Protein Negative (Negative) Urine Ketones Negative (Negative) Urine Blood Negative /uL (Negative) Urine Nitrite Negative (Negative) Urine Bilirubin Negative (Negative) Urine Urobilinogen Normal mg/dL (Negative) Urine Leukocyte Esterase 3+ /uL (Negative) Urine RBC 5 /hpf (0 - 4) Urine Microscopic WBC 4 /HPF (0-5) Urine Squamous Epithelial Cells Few /hpf (<5) Urine Bacteria None seen /hpf (None Seen) Urine Mucus Few (None Seen) Urine Glucose Normal mg/dL (Normal) Urine Test Negative (Negative) Blood Gas Results Test 02/16/25 17:30 Arterial Blood pH 7.323 (7.350-7.450) FiO2 % 28.0 Assessment/Plan Assessment/Plan acute intractable abd pain us shows gallstones but in infection clr liquid diet for now ivf protonix ordered morphine as needed for pain acute gallstones no infection found on us ordered morphine for now Going for surgery today chronic problems asthma fen/ppx clr liquid protonix scd ivf Plan discussed with: Patient My Orders Orders - ARACELI NAVA MD Procedure Category Date Status Time Electrocardigram EKG 02/16/25 Logged 16:30 Date of Service: February 16, 2025 Billing Provider: ARACELI NAVA MD Common Visit Codes: [id number] INP/OBS CARE(HIGH) ARACELI NAVA MD February 16, 2025 18:57
[2025-02-16] MEDS: LACTATED RINGER'S 1,000 ML IV ONE (19:15)
[2025-02-16] MEDS: SODIUM CHLORIDE 0.9% 1,000 ML IV ONE (19:16)
[2025-02-16 19:24] LABS: Lymphocytes % (manual) 7 (10.0-50.0); Monocytes % (manual) 1 (0-12)
[2025-02-16 19:25] LABS: Hypochromia Moderate; Platelet Estimate Adequate
[2025-02-16 19:35] LABS: Opiate Scree,Urine Neg (NEGATIVE)
[2025-02-16 19:36] LABS: Amphetamine Screen, Urine Neg (NEGATIVE); Barbiturate Scree,Urine Neg (NEGATIVE); Benzodiazephine Screen, Urine Pos (NEGATIVE); Cannabinoid Screen, Urine Pos (NEGATIVE); Cocaine Screen, Urine Neg (NEGATIVE); Phencyclidine Screen, Urine Neg (NEGATIVE)
--- NOTE | 2025-02-16 21:35 | DVH ---
CT HEAD WITHOUT CONTRAST INDICATION: ALOC COMPARISON: None TECHNIQUE: CT of the head without intravenous contrast. RADIATION DOSE: CTDIvol: mGy, DLP: mGy*cm FINDINGS: There is no evidence of intracranial hemorrhage, infarct, extra-axial collection, mass effect, midlin e shift, herniation or hydrocephalus. The ventricles, sulci and cisterns are normal. The irwin-white d ifferentiation is intact. Visualized paranasal sinuses and mastoid air cells are clear. Soft tissues and osseous structures are unremarkable. IMPRESSION: No intracranial abnormality identified.
[2025-02-16] MEDS: ceFAZolin 1GM/50ML 50 ML IV SCH (21:44)
[2025-02-16] MEDS: ACETAMINOPHEN 325 MG TAB PO PRN (21:58)
[2025-02-16] MEDS: metroNIDAZOLE 500MG/100ML 100 ML IV SCH (22:33)
--- NOTE | 2025-02-17 07:22 | DVHPN2 ---
Subjective Date Seen: February 17, 2025 Post op day Post op day: 1 Patient reports: No new complaints Nursing reports: No new complaints General: Normal HNT: Normal Cardiovascular: Normal Respiratory: Normal Gastrointestinal: Abdominal Pain Genitourinary: Normal Musculoskeletal: Normal Neurological: Normal Objective Vitals Vital Sign Date Time Temp Pulse Resp B/P (MAP) Pulse Ox O2 Delivery O2 Flow Rate FiO2 02/16/25 20:00 Room Air* 0 21 02/16/25 20:00 101 02/16/25 17:00 98.0 18 116/72 (87) 100 98.0 Total Intake and Output 02/16/25 02/16/25 02/17/25 15:00 23:00 07:00 Intake Total 340 ml 50 ml 1150 ml Balance 340 ml 50 ml 1150 ml Medications Current Medications Medications Dose Ordered Sig/Rizwan Route Start Time Stop Time Status Last Admin Dose Admin Sodium Chloride 1,000 ml @ 120 mls/hr Q8H20M IV 02/15/25 15:45 02/17/25 05:06 120 MLS/HR Ondansetron HCl 4 mg Q4HP PRN IV 02/15/25 15:45 02/15/25 21:04 4 MG Docusate Sodium 100 mg BIDPRN PRN PO 02/15/25 15:45 Morphine Sulfate 2 mg Q4HPRN PRN IV 02/15/25 15:45 UNV Nitroglycerin 0.4 mg Q5MINP PRN SL 02/15/25 15:45 Morphine Sulfate 2 mg Q4HPRN PRN IV 02/15/25 16:30 02/15/25 21:17 2 MG Acetaminophen 650 mg Q6HP PRN PO 02/16/25 03:00 02/16/25 21:58 650 MG Metronidazole 100 ml @ 100 mls/hr Q8HR IV 02/16/25 22:00 02/17/25 07:03 100 MLS/HR Cefazolin Sodium 50 ml @ 100 mls/hr Q8HR IV 02/16/25 22:00 02/17/25 06:23 100 MLS/HR General: Normal, Well developed, Obese Head/Eyes: Normal ENT: Normal Neck: Normal Lungs: Normal, Normal inspection Cardiovascular: Normal, Regular rate and rhythm Abdominal: Normal, Soft Musculoskeletal: Normal Extremities: Normal, No peripheral edema Skin: Normal, Normal color, Warm, Other (surgery wound sites) Labs and Microbiology Laboratory Tests 02/16/25 17:38 Test 02/16/25 17:38 Range/Units Serum Glucose 142 H 74-106 mg/dL Ass/Plan Labs and/or images reviewed: Labs reviewed by me Problems(with codes): (1) S/P cholecystectomy (2) Cholelithiasis Assessment/Plan no new complaints abdomen soft, non distended, appropriately tender tolerating diet denies nausea and vomiting wounds clean dry and intact labs ok notes reviewed Plan: patient to ambulate advance diet as tolerated discharge in 24 hours patient to follow up in clinic in two weeks may shower in 48 hours (ok to wet wounds in 48 hours) Prognosis: Excellent Plan discussed with patient, Dr. Stewart Visit Coding Surgery Date of Service if different f: February 17, 2025 Billing Provider: CAMPOS STEWART MD Surgery Visit Codes: [id number] INP/OBS CARE(HIGH) PAWLE WILKERSON WOODWORKER February 17, 2025 07:22
[2025-02-17 08:00] VITALS: PULSE 65
[2025-02-17 09:00] VITALS: BP 115/73; PULSE 54; RESP 20; TEMP 97; O2SAT 99
[2025-02-17 10:00] VITALS: O2SAT 99
--- NOTE | 2025-02-17 10:01 | ECG ---
[facility] Test Date: 2025-02-16 Test Time: 16:37:42 Pat Name: RIVERA KHOURY Department: Respiratoy Room: 0240T A Gender: F [employer]ist: : 1995 Requested By: ARACELI NAVA Order Number: [id number] Reading MD: Bahman Powers Measurements Intervals [place] Rate: 89 P: 77 MD: 202 QRS: 29 QRSD: 91 T: -4 QT: 402 QTc: 490 Interpretive Statements Sinus rhythm Borderline prolonged MD interval Probable left atrial enlargement Nonspecific T abnormalities, anterior leads Borderline prolonged QT interval Electronically Signed On 02-18-2025 22:53:25 PDT by Bahman Powers Please click the below link to view image of tracing.
--- NOTE | 2025-02-17 10:43 | DVHPN2 ---
Progress Note - Dictate Date Seen: February 17, 2025 Medical Necessity Reason Pt with a Central, PICC or Fol: No Subjective Covering for Dr. Stewart. vital signs Vital Sign Date Time Temp Pulse Resp B/P (MAP) Pulse Ox O2 Delivery O2 Flow Rate FiO2 02/17/25 09:00 97.0 54 20 115/73 (87) 99 97.0 02/17/25 08:00 Room Air* 0 21 Total Intake and Output 02/16/25 02/16/25 02/17/25 15:00 23:00 07:00 Intake Total 340 ml 50 ml 1150 ml Balance 340 ml 50 ml 1150 ml medications Current Medications Medications Dose Ordered Sig/Rizwan Route Start Time Stop Time Status Last Admin Dose Admin Sodium Chloride 1,000 ml @ 120 mls/hr Q8H20M IV 02/15/25 15:45 02/17/25 05:06 120 MLS/HR Ondansetron HCl 4 mg Q4HP PRN IV 02/15/25 15:45 02/15/25 21:04 4 MG Docusate Sodium 100 mg BIDPRN PRN PO 02/15/25 15:45 Morphine Sulfate 2 mg Q4HPRN PRN IV 02/15/25 15:45 UNV Nitroglycerin 0.4 mg Q5MINP PRN SL 02/15/25 15:45 Morphine Sulfate 2 mg Q4HPRN PRN IV 02/15/25 16:30 02/15/25 21:17 2 MG Acetaminophen 650 mg Q6HP PRN PO 02/16/25 03:00 02/16/25 21:58 650 MG Metronidazole 100 ml @ 100 mls/hr Q8HR IV 02/16/25 22:00 02/17/25 07:03 100 MLS/HR Cefazolin Sodium 50 ml @ 100 mls/hr Q8HR IV 02/16/25 22:00 02/17/25 06:23 100 MLS/HR objective E: no major events o/n. no complaints. case po well. GEN: NAD. alert and oriented x 3. ABD: surgical incisions clean and dry. CT HEAD: neg. laboratory and microbiology Test 02/17/25 05:16 Range/Units Serum Glucose Pending Assessment/Plan A: 1. Status post laparoscopic cholecystectomy POD #1 doing well. P: 1. stable from surgery POV for DC if labs are ok. Plan discussed with: Patient URBAN MATHEW MD February 17, 2025 10:43
[2025-02-17 10:46] LABS: Basophils # (auto) 0 10 ^3/uL (0-0.2); Basophils % (auto) 0.2 % (0.0-2.0); Eosinophils # (auto) 0 10 ^3/uL (0-0.8); Hematocrit 28.2 % (36.0-46.0); Mean Corpuscular Hemoglobin 23.1 pg (28.0-32.0); White Blood Cell 9.8 10^3/uL (4.4-10.8)
[2025-02-17 10:48] LABS: Hemoglobin 8.8 g/dL (12.2-16.2); Lymphocytes # (auto) 1.7 10 ^3/uL (0.4-5.4); Lymphocytes % (auto) 17.2 % (10.0-50.0); Mean Corpuscular Hgb Conc. 31.2 g/dL (32.0-36.0); Monocytes # (auto) 0.5 10 ^3/uL (0-1.3); Monocytes % (auto) 4.7 % (0.0-12.0); Neutrophils # (auto) 7.7 10 ^3/uL (1.6-8.6); Neutrophils % (auto) 77.9 % (37.0-80.0); Platelet Count (auto) 283 10^3/uL (140-450); Red Blood Cells 3.81 10^6/uL (4.0-5.20); Red Cell Distribution Width 18.2 % (11.8-14.3)
[2025-02-17 10:57] LABS: Alanine Aminotransferase 21 U/L (7-40); Albumin 3.8 g/dL (3.2-4.8); Alkaline Phosphatase 80 U/L (46-116); Anion Gap 9 (5-15); Aspartate Aminotransferase 24 U/L (13-40); BUN/Creatinine Ratio 7.6 (10.0-20.0); Calcium 9.3 mg/dL (8.7-10.4); Carbon Dioxide 21 mmol/L (20-31); Glucose 93 mg/dL (74-106); Potassium 3.6 mmol/L (3.5-5.1); Sodium 142 mmol/L (136-145); Total Protein 6.5 g/dL (5.7-8.2)
[2025-02-17 10:58] LABS: Bilirubin, Total 0.5 mg/dL (0.2-1.0); Blood Urea Nitrogen 6 mg/dL (9-23); Chloride 112 mmol/L (98-107)
[2025-02-17] MEDS ORDERED: KETOROLAC TROMETH 30 MG/ML 1ML VIAL IV PRN (11:45)
[2025-02-17 13:00] VITALS: BP 116/73; PULSE 71; RESP 20; TEMP 97.1; O2SAT 100
[2025-02-17] MEDS ORDERED: ACETAMINOPHEN 325 MG TAB PO PRN (13:00)
[2025-02-17] MEDS: ACETAMINOPHEN 325 MG TAB PO PRN (13:51)
[2025-02-17 17:00] VITALS: BP_SYST 111; BP_SYST 116; BP_DIAS 68; BP_DIAS 73; PULSE 71; RESP 20; TEMP 97; TEMP 97.2; O2SAT 99
[2025-02-17] MEDS ORDERED: HYDR-4902 PO (18:02)
--- NOTE | 2025-02-17 18:04 | DVHDS2 ---
Discharge Summary Date of Admission February 15, 2025 at 15:34 Date of Discharge: February 17, 2025 Labs/Diagnostic Data: Laboratory Results Test 02/17/25 05:16 02/16/25 18:50 02/16/25 17:38 02/16/25 17:30 White Blood Count 9.8 10^3/uL (4.4-10.8) Red Blood Count 3.81 10^6/uL (4.0-5.20) Hemoglobin 8.8 g/dL (12.2-16.2) Hematocrit 28.2 % (36.0-46.0) Mean Corpuscular Volume 74.0 fL (80.0-100.0) Mean Corpuscular Hemoglobin 23.1 pg (28.0-32.0) Mean Corpuscular Hemoglobin Concent 31.2 g/dL (32.0-36.0) Red Cell Distribution Width 18.2 % (11.8-14.3) Platelet Count 283 10^3/uL (140-450) Mean Platelet Volume 8.6 fL (6.9-10.8) Neutrophils (%) (Auto) 77.9 % (37.0-80.0) Lymphocytes (%) (Auto) 17.2 % (10.0-50.0) Monocytes (%) (Auto) 4.7 % (0.0-12.0) Eosinophils (%) (Auto) 0.0 % (0.0-7.0) Basophils (%) (Auto) 0.2 % (0.0-2.0) Neutrophils # (Auto) 7.7 10 ^3/uL (1.6-8.6) Lymphocytes # (Auto) 1.7 10 ^3/uL (0.4-5.4) Monocytes # (Auto) 0.5 10 ^3/uL (0-1.3) Eosinophils # (Auto) 0 10 ^3/uL (0-0.8) Basophils # (Auto) 0 10 ^3/uL (0-0.2) Nucleated Red Blood Cells 0.0 % Sodium Level 142 mmol/L (136-145) Potassium Level 3.6 mmol/L (3.5-5.1) Chloride Level 112 mmol/L (98-107) Carbon Dioxide Level 21 mmol/L (20-31) Anion Gap 9 (5-15) Blood Urea Nitrogen 6 mg/dL (9-23) Creatinine 0.79 mg/dL (0.550-1.02) Glomerular Filtration Rate Calc 103 mL/min (>90) BUN/Creatinine Ratio 7.6 (10.0-20.0) Serum Glucose 93 mg/dL (74-106) Calcium Level 9.3 mg/dL (8.7-10.4) Total Bilirubin 0.5 mg/dL (0.2-1.0) Direct Bilirubin 0.2 mg/dL (<0.3) Aspartate Amino Transferase (AST) 24 U/L (13-40) Alanine Aminotransferase (ALT) 21 U/L (7-40) Alkaline Phosphatase 80 U/L (46-116) Total Protein 6.5 g/dL (5.7-8.2) Albumin 3.8 g/dL (3.2-4.8) Urine Opiates Screen Neg (NEGATIVE) Urine Fentanyl Screen Pos (NEGATIVE) Urine Barbiturates Screen Neg (NEGATIVE) Urine Phencyclidine Screen Neg (NEGATIVE) Urine Amphetamines Screen Neg (NEGATIVE) Urine Benzodiazepines Screen Pos (NEGATIVE) Urine Cocaine Screen Neg (NEGATIVE) Urine Cannabinoids Screen Pos (NEGATIVE) Differential Total Cells Counted 100.0 (100) Neutrophils % (Manual) 92 (37.0-80.0) Band Neutrophils % (Manual) 0 Lymphocytes % (Manual) 7 (10.0-50.0) Monocytes % (Manual) 1 (0-12) Eosinophils % (Manual) 0 (0-7) Basophils % (Manual) 0 (0.0-2.0) Metamyelocytes % (manual) 0 Myelocytes % (Manual) 0 Promyelocytes % (Manual) 0 Blast Cells % (Manual) 0 Reactive Lymphocytes 0 Platelet Estimate Adequate Hypochromasia (manual) Moderate Microcytosis Moderate Blood Gas Specimen Type Arterial Blood Gas Sample Site Right radial Blood Gas Patient Temperature 37.0 Arterial Blood Date Drawn [id number] Arterial Blood pH 7.323 (7.350-7.450) Arterial Blood Partial Pressure CO2 34.9 mmHg (32.0-45.0) Arterial Blood Partial Pressure O2 125.0 mmHg (83.0-108.0) Arterial Blood HCO3 17.7 mmol/L (21.0-28.0) Arterial Blood Oxygen Saturation 98.1 % (94.0-98.0) Arterial Blood Base Excess -7.5 mmol/L (-2.0-3.0) Arterial Blood Oxyhemoglobin 97.4 % (94.0-98.0) Arterial Blood Carboxyhemoglobin 0.3 % (0.5-1.5) Arterial Blood Methemoglobin 0.4 % (0.0-1.5) Delta Test Yes Blood Gas Total Hemoglobin 11.40 g/dL (12.0-16.0) Blood Gas Liter Flow 2.00 Blood Gas Modality Nasal cannula FiO2 % 28.0 Test 02/15/25 19:29 02/15/25 10:33 02/15/25 10:30 Prothrombin Time 11.4 sec (9.3-11.8) Prothrombin Time INR 1.08 (0.9-1.15) Activated Partial Thromboplast Time 31.1 SEC (24.5-34.5) Lipase 32 U/L (12-53) Urine Color Light-yellow (Yellow) Urine Clarity Turbid (Clear) Urine pH 6.5 (5.0-9.0) Urine Specific [place] 1.021 (1.001-1.035) Urine Protein Negative (Negative) Urine Ketones Negative (Negative) Urine Blood Negative /uL (Negative) Urine Nitrite Negative (Negative) Urine Bilirubin Negative (Negative) Urine Urobilinogen Normal mg/dL (Negative) Urine Leukocyte Esterase 3+ /uL (Negative) Urine RBC 5 /hpf (0 - 4) Urine Microscopic WBC 4 /HPF (0-5) Urine Squamous Epithelial Cells Few /hpf (<5) Urine Bacteria None seen /hpf (None Seen) Urine Mucus Few (None Seen) Urine Glucose Normal mg/dL (Normal) Urine Test Negative (Negative) Other Laboratory Tests 02/17/25 05:16 Brief Hx & Hospital Course: 29-year-old female past medical history asthma no surgical history chief complaint patient complains of right upper quadrant pain she has been dealing with it for two months last week the symptoms got worse with the pain was more intense full especially when she ate so she has been having decreased appetite due to the pain she denies any chest pain no shortness with the breath patient does have subjective fevers patient denies any vomiting or diarrhea not eating makes the pain better along with lying in the position. When evaluating patient's labs and imaging CBC was unremarkable CMP unremarkable UA shows few leuks but no urinary symptoms ultrasound of the abdomen shows gallstones with no infection with these findings we will admit patient ask for General surgery evaluation IV fluid hydration since no white count no fever we will hold off on antibiotics for now Had cholecystectomy and tolerated well Condition at Discharge: Good Final Diagnosis/Problems List cholecystitis Discharge Disposition: Home Discharge Instruct/Medications Diet: Regular Activity: No Restrictions, As Tolerated Follow Up/Referral: PCP in 7 days and surgery Medications: norco Discharge Statement: "Patient was advised to return to the ER or call 911 if any headaches, dizziness, shortness of breath, chest pain, abdominal pain, bleeding, fevers, or worsening of medical condition. Patient was counseled about treatment plan, medications, possible side effects, patientverbalized understanding. All questions were answered to the best of my ability. This discharge took greater then 30 minutes in planning, reviewing documentation, counseling the patient, and discussing with other team members." ASSESSMENT ASSESSMENT Assessment cholecystitis Date of Service: February 17, 2025 Billing Provider: ARACELI NAVA MD Common Visit Codes: [id number] DISCH DAY >30min ARACELI NAVA MD February 17, 2025 18:04
[2025-02-17] MEDS: DOCUSATE SOD 100 MG CAP PO PRN (18:19)
[2025-02-17 18:42] VITALS: BP 111/68; PULSE 71; RESP 20; TEMP 97; O2SAT 99
== END 2025-02-17 19:36 | disposition home or self-care (01) | DRG 263 ==
LOC: ER 10:10 → OVERFLOW 15:34 → EAST 18:44 → TELE-EAST 02-16 18:30
PROVIDERS: ADMIT Hospitalist; ATTEND Hospitalist
PROC: 0FT44ZZ Resection of Gallbladder, Percutaneous Endoscopic Approach (ICD-10-PCS; principal; 2025-02-16 11:01)
DX: K80.10 Calculus of gallbladder with chronic cholecystitis without obstruction (principal); R71.0 Precipitous drop in hematocrit; J45.909 Unspecified asthma, uncomplicated
CPT/HCPCS: 36415; 36600; 70450; 71045; 76705; 80053; 80307; 81001; 81025; 82247; 82248; 82805; 83690; 85007; 85025; 85027; 85610; 85730; 86850; 86900; 86901; 87086; 87493; 93005; 94640; G0378; J1100; J1885; J2003; J2250; J2405; J2704; J3490